=== PATIENT | male | born 1985 | race Two or more races ===

== ENCOUNTER 2017-06-22 07:26 | Day surgery (SDC) | payer MEDICARE, OTHER ==
[~2017-06-22] VITALS: Ht 172.7 cm; Wt 87.2 kg
[~2017-06-22 07:26] MED LIST: AUGMENTIN 875-1 EACH PO; NORCO 5-325 TA1 EACH PO
--- NOTE | 2017-06-22 11:25 | NUR ---
06/22/17 1125 Lorin Shi 1108 PT ARRIVED TO PACU NONAROUSABLE, MAINTIANING OWN AIRWAY AND RESP EVEN AND UNLABORED. 1113 O3 DECREASED TO 6L VIA MASK. O2 SAT 100%. 1116 PT SNORING. 1118 PT STRECHING IN BED AND OPENED HIS EYES. 1124 RN WRITE ON NOTE PAD TO COMMUNICATE WITH PT. PT DENIES NAUSEA AND PAIN. 1125 AT [facility].
[2017-06-22] MEDS ORDERED: NORCO 5-325 TA1 EACH PO (13:32)
== END 2017-06-22 13:40 | disposition home or self-care (01) ==
LOC: OPS 07:26 → DS 07:26 → OPS 09:00
PROVIDERS: Dentist
PROC: 0CRWXJ1 Replacement of Upper Tooth, Multiple, with Synthetic Substitute, External Approach (ICD-10-PCS; 2017-06-22)
PROC: 0CTX0Z1 Resection of Lower Tooth, Multiple, Open Approach (ICD-10-PCS; 2017-06-22)
PROC: 0CRXXJ0 Replacement of Lower Tooth, Single, with Synthetic Substitute, External Approach (ICD-10-PCS; principal; 2017-06-22 09:00)
DX: K02.9 Dental caries, unspecified (principal); H91.3 Deaf nonspeaking, not elsewhere classified; F84.5 Asperger's syndrome; L21.8 Other seborrheic dermatitis; Z98.890 Other specified postprocedural states
CPT/HCPCS: 00170; J0330; J2250; J2405; J2704; J2765; J3010; J7120

== ENCOUNTER 2019-08-15 17:00 | Emergency (ER) | payer MEDICARE, OTHER ==
[~2019-08-15] VITALS: Ht 172.7 cm; Wt 87.2 kg
== END 2019-08-15 17:58 | disposition home or self-care (01) ==
LOC: ED 17:00
DX: S86.911A Strain of unspecified muscle(s) and tendon(s) at lower leg level, right leg, initial encounter (principal); X58.XXXA Exposure to other specified factors, initial encounter
CPT/HCPCS: 99283

== ENCOUNTER 2019-10-17 19:34 | Emergency (ER) | payer MEDICARE, OTHER ==
[~2019-10-17] VITALS: Ht 172.7 cm; Wt 87.1 kg
[2019-10-17] MEDS ORDERED: NORCO 5-325 TA1 EACH PO (20:15)
[2019-10-17] MEDS ORDERED: AUGMENTIN 875-1 EACH PO (21:14)
== END 2019-10-17 21:32 | disposition home or self-care (01) ==
LOC: ED 19:34
DX: S41.151A Open bite of right upper arm, initial encounter (principal); W54.0XXA Bitten by dog, initial encounter; Z23 Encounter for immunization
CPT/HCPCS: 90471; 90715; 99283-25

== ENCOUNTER 2019-11-12 14:13 | Emergency (ER) | payer MEDICARE, OTHER ==
[~2019-11-12] VITALS: Ht 172.7 cm; Wt 87.1 kg
--- OUTSIDE RECORDS SUMMARY | 2019-11-12 14:18 | XMS ---
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 Marti has no Care Guidelines for this patient. Bill VIS[facility] (12 MO.) [facility] T[facility] NOTE: Visits indicate total known visits. ED/C VISIT TRACKING (12 MO.) [facility] COMPLAINT: - COUGH, RUNNY NOSE 10/17/2019 19:35 DAWNA [facility] TYPE: Emergency COMPLAINT: - ANIMAL BITE DIAGNOSES: - Open bite of right upper arm, initial encounter - Encounter for immunization - Bitten by dog, initial encounter 08/15/2019 17:00 DAWNA [place] TYPE: Emergency COMPLAINT: - LEG PAIN, INJ DIAGNOSES: - Exposure to other specified factors, initial encounter - Pain in right leg - Strain of unspecified muscle(s) and tendon(s) at lower leg le INPATIENT VISIT TRACKING (12 MO.) No inpatient visits to display in this time frame [id number]
--- NOTE | 2019-11-13 06:57 | PATH ---
[facility] [address] [place], [place] [address] Signed ORDERING PHYSICIAN: Emeterio Weiner MD PATIENT NAME: PAULINO SMITH GENDER: M : 1985 SPECIMEN(S): MOLECULAR PATHOLOGY RESULTS: SARS-CoV-2 DETECTED ADDITIONAL NOTES.: The Barton Fusion SARS-CoV-2 Assay is a multiplex real-time PCR (RT-PCR) in vitro diagnostic test intended for the qualitative detection of RNA from SARS-CoV-2 from individuals who meet COVID-19 clinical and/or epidemiological criteria. In general, SARS-CoV-2 RNA can be detected during the acute phase of infection. Positive results indicate the presence of SARS-CoV-2 RNA. Clinical correlation with patient history and other diagnostic information is necessary to determine patient infection status. Positive results do not rule out bacterial infection or co-infection with other viruses. Negative results do not preclude SARS-CoV-2 infection and should not be used as the sole basis for patient management decisions. Negative results must be combined with other clinical observations, patient history, and epidemiological information. The Barton Fusion SARS-CoV-2 Assay is not yet approved or cleared by the [place] FDA. When there are no FDA-approved or cleared tests available, and other criteria are met, FDA can make tests available under an emergency access mechanism called an Emergency Use Authorization (EUA). The EUA for this test is supported by the [place] of Health and Human Service's (HHS's) declaration that circumstances exist to justify the emergency use of in vitro diagnostics for the detection and/or diagnosis of the virus that causes COVID-19. This EUA will remain in effect for the duration of the COVID-19 declaration justifying emergency of IVDs, unless it is terminated or revoked by FDA, after which the test may no longer be used. The Barton Fusion SARS-CoV-2 Assay is for use only under EUA in US laboratories certified under the Clinical Laboratory Improvement Amendments of 1988 (CLIA) to perform high complexity tests. [facility] is certified under CLIA to perform high complexity PATIENT NAME: PAULINO SMITH [facility] DATE OF : [birth year] REPORT #: [id number] PHYSICIAN: HAYDER PATHOLOGY PCP: FELIPA SALGUERO REPORT IS CONFIDENTIAL AND NOT TO BE RELEASED WITHOUT AUTHORIZATION [facility] [address] [place] [id number] Signed clinical laboratory testing. PERFORMING LABORATORY.: Molecular testing was performed by [facility] [place] [address] (Integration Developer: Nicholas Yun D.O.; CLIA#: [id number]) Diagnostician: System Interface Pathologist Electronically Signed 11/13/2019 Copies: ~ PATIENT NAME: PAULINO SMITH [facility] DATE OF : [birth year] REPORT #: [id number] PHYSICIAN: HAYDER JENKINS PCP: FELIPA SALGUERO REPORT IS CONFIDENTIAL AND NOT TO BE RELEASED WITHOUT AUTHORIZATION
== END 2019-11-12 15:13 | disposition home or self-care (01) ==
LOC: ED 14:13
DX: U07.1 COVID-19 (principal); J06.9 Acute upper respiratory infection, unspecified
CPT/HCPCS: 99283; C9803

== ENCOUNTER 2020-02-08 19:25 | Emergency (ER) | payer MEDICARE, OTHER ==
[~2020-02-08] VITALS: Ht 172.7 cm; Wt 87.1 kg
--- OUTSIDE RECORDS SUMMARY | 2020-02-08 19:28 | XMS ---
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 Care History Medical/Surgical 11/13/2019 [facility] - Patient is currently established with [facility]. If patient is seen in the ED during business hours. Please contact CHWs at [facility]. Care Recommendation: If this patient has had 5 or more Emergency Department visits in the last 12 months.\T\nbsp; Patient will require education on the scope and purpose of the ED as an acute care provider not a Primary Care Provider and should not be utilized for chronic conditions.\T\nbsp; These are guidelines and the provider should exercise clinical judgment when providing care. 11/13/2019 [facility] This patient is deaf with Aspergers Syndrome.\T\nbsp; Guanaco, father, stated that they were informed pt is POSITIVE for COVID 19 and patient will not listen and isolate.\T\nbsp; Advised to contact Public Health.\T\nbsp; E.D. VISIT COUNT (12 MO.) 4 DAWNA Torres TOTAL 4 NOTE: Visits indicate total known visits. ED/UCC VISIT TRACKING (12 MO.) 02/08/2020 19:25 DAWNA [place] TYPE: Emergency COMPLAINT: - COUGH,NECK PAIN 11/12/2019 14:16 DAWNA [facility] TYPE: Emergency COMPLAINT: - COUGH, RUNNY NOSE DIAGNOSES: - Acute upper respiratory infection, unspecified - COVID-19 - Cough 10/17/2019 19:35 DAWNA [place] TYPE: Emergency [...] unspecified muscle(s) and tendon(s) at lower leg level, right leg, initial encounter INPATIENT VISIT TRACKING (12 MO.) No inpatient visits to display in this time frame [email or web address]
== END 2020-02-08 20:13 | disposition left against medical advice (07) ==
LOC: ED 19:25
DX: Z53.21 Procedure and treatment not carried out due to patient leaving prior to being seen by health care provider (principal)

== ENCOUNTER 2020-04-06 19:55 | Emergency (ER) | payer MEDICARE, OTHER ==
[~2020-04-06] VITALS: Ht 172.7 cm; Wt 87.1 kg
--- OUTSIDE RECORDS SUMMARY | 2020-04-06 19:58 | XMS ---
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 CRITERIA MET - [facility] - Has Care Guidelines CARE PROVIDERS FELIPA SALGUERO Nurse Practitioner: 11/13/2019-Current PHONE: [phone] Marti has no Care Guidelines for this patient. Care History Medical/Surgical 11/13/2019 [facility] - Patient is currently established with [facility]. If patient is seen in the ED during business hours. Please contact CHWs at [facility]. Care Recommendation: If this patient has had 5 or more Emergency Department visits in the last 12 months.\T\nbsp; Patient will require education on the scope and purpose of the ED as an acute care provider not a Primary Care Provider and should not be utilized for chronic conditions.\T\nbsp; These are guidelines and the provider should exercise clinical judgment when providing care. 11/13/2019 [facility] This patient is deaf with Aspergers Syndrome.\T\nbsp; Guanaco, father, stated that they were informed pt is POSITIVE for COVID 19 and patient will not listen and isolate.\T\nbsp; Advised to contact Public Health.\T\nbsp; E.D. VISIT COUNT (12 MO.) [address] [facility] TOTAL 5 NOTE: Visits indicate total known visits. ED/UCC VISIT TRACKING (12 MO.) 04/06/2020 19:[address] [facility] [place] TYPE: Emergency COMPLAINT: - LEG PAIN 02/08/2020 19:[address] [facility] [place] TYPE: Emergency COMPLAINT: - COUGH,NECK PAIN DIAGNOSES: - Cervicalgia - Procedure and treatment not carried out due to patient leaving prior to being seen by health care provider - Cough 11/12/2019 14:16 DAWNA Marino [place] TYPE: Emergency [...] visits to display in this time frame [id number]
== END 2020-04-06 21:40 | disposition home or self-care (01) ==
LOC: ED 19:55
DX: M79.662 Pain in left lower leg (principal)
CPT/HCPCS: 99283

== ENCOUNTER 2020-04-21 17:42 | Emergency (ER) | payer MEDICARE, OTHER ==
[~2020-04-21] VITALS: Ht 172.7 cm; Wt 87.1 kg
--- OUTSIDE RECORDS SUMMARY | 2020-04-21 17:46 | XMS ---
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 CRITERIA MET - [facility] - Has Care Guidelines - [facility] - 2 Visits in 30 Days CARE PROVIDERS FELIPA SALGUERO Nurse Practitioner: 11/13/2019-Current PHONE: [phone] Marti has no Care Guidelines for this patient. Care History Medical/Surgical 11/13/2019 [facility] - Patient is currently established with [facility]. If patient is seen in the ED during business hours. Please contact CHWs at [facility]. Care Recommendation: If this patient [...] exercise clinical judgment when providing care. 11/13/2019 [facility] This patient is deaf with Aspergers Syndrome.\T\nbsp; Guanaco, father, stated that they were informed pt is POSITIVE for COVID 19 and patient will not listen and isolate.\T\nbsp; Advised to contact Public Health.\T\nbsp; E.D. VISIT COUNT (12 MO.) 6 DAWNA Torres TOTAL 6 NOTE: Visits indicate total known visits. ED/UCC VISIT TRACKING (12 MO.) 04/21/2020 17:43 DAWNA [place]ino [place] TYPE: Emergency COMPLAINT: - FEET/LEGS PAIN 04/06/2020 19:56 DAWNA [place] TYPE: Emergency COMPLAINT: - LEG PAIN/ INJ DIAGNOSES: - Pain in left lower leg 02/08/2020 19:25 [facility] [place] [place] TYPE: Emergency COMPLAINT: - COUGH,NECK PAIN DIAGNOSES: - Cervicalgia - Procedure and treatment not carried out due to patient leaving prior to being seen by health care provider - Cough 11/12/2019 14:16 [facility] [place] [facility] [place] TYPE: Emergency COMPLAINT: - COUGH, RUNNY NOSE DIAGNOSES: - Acute upper respiratory infection, unspecified - COVID-19 - Cough 10/17/2019 19:35 [facility] [place] [facility] [place] TYPE: Emergency COMPLAINT: - ANIMAL BITE [...] visits to display in this time frame [id number]
== END 2020-04-21 18:45 | disposition home or self-care (01) ==
LOC: ED 17:42
DX: R23.8 Other skin changes (principal)
CPT/HCPCS: 99283; A9270

== ENCOUNTER 2020-05-07 07:34 | Emergency (ER) | payer MEDICARE, OTHER ==
[~2020-05-07] VITALS: Ht 172.7 cm; Wt 87.1 kg
--- OUTSIDE RECORDS SUMMARY | 2020-05-07 07:40 | XMS ---
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 CRITERIA MET - [facility] - Has Care Guidelines - [facility] - 2 Visits in 30 Days CARE PROVIDERS FELIPA SALGUERO Nurse Practitioner: 11/13/2019-Current PHONE: [phone] Marti has no Care Guidelines for this patient. Care History Medical/Surgical 11/13/2019 [facility] - Patient is currently established with [facility]. If patient is seen in the ED during business hours. Please contact CHWs at [facility]. Care Recommendation: If this patient has had 5 or more Emergency Department visits in the last 12 months.\T\nbsp; Patient will require education on the scope and purpose of the ED as an acute care provider not a Primary Care Provider and should not be utilized for chronic conditions.\T\nbsp; These are guidelines and the provider should exercise clinical judgment when providing care. 11/13/2019 [facility] This patient is deaf with Aspergers Syndrome.\T\nbsp; Guanaco, father, stated that they were informed pt is POSITIVE for COVID 19 and patient will not listen and isolate.\T\nbsp; Advised to contact Public Health.\T\nbsp; E.D. VISIT COUNT (12 MO.) [address] [facility] [address] [facility] TOTAL 7 NOTE: Visits indicate total known visits. ED/UCC VISIT TRACKING (12 MO.) 05/07/2020 07:38 DAWNA Marino [place] TYPE: Emergency COMPLAINT: - FOOT PAIN 04/21/2020 17:43 [place] [place] TYPE: Emergency COMPLAINT: - FEET/LEGS PAIN/ NON INJ DIAGNOSES: - Other skin changes - Blister (nonthermal), right foot, initial encounter - Pain in right knee - Exposure to other specified factors, initial encounter - Blister (nonthermal), left foot, initial encounter - Pain in right foot 04/06/2020 19:[address] [facility] [address] [facility] [place] TYPE: Emergency COMPLAINT: - LEG PAIN/ INJ DIAGNOSES: - Pain in left lower leg 02/08/2020 19:[address] [facility] [address] [facility] [place] TYPE: Emergency COMPLAINT: - COUGH,NECK PAIN DIAGNOSES: - Cervicalgia - Procedure and treatment not carried out due to patient leaving prior to being seen by health care provider - Cough 11/12/2019 14:[address] [facility] [address] [facility] [place] TYPE: Emergency COMPLAINT: - COUGH, [...] visits to display in this time frame [id number]
== END 2020-05-07 08:13 | disposition home or self-care (01) ==
LOC: ED 07:34
DX: T25.221A Burn of second degree of right foot, initial encounter (principal); X58.XXXA Exposure to other specified factors, initial encounter
CPT/HCPCS: 99283

== ENCOUNTER 2020-06-10 16:22 | Emergency (ER) | payer MEDICARE, OTHER ==
[~2020-06-10] VITALS: Ht 172.7 cm; Wt 87.1 kg
--- OUTSIDE RECORDS SUMMARY | 2020-06-10 16:24 | XMS ---
PreManage Notification: PAULINO SMITH Security Clinical Support Associate Events 1 event(s) in the past 18 months Most recent security events: Elopement at [facility] 02/08/2020 19:25 - Other Details: PATIENT LWBS. CRITERIA MET - [facility] - Has Care Guidelines CARE PROVIDERS FELIPA SALGUERO Nurse Practitioner: Family 11/13/2019-Current PHONE: [phone] Marti has no Care Guidelines for this patient. Care History Medical/Surgical 05/10/2020 [facility] - CHW HAS CALLED PATIENT MOM AND LEFT A VOICEMAIL- CHW HAS CONTACTED PATIENT FREEMANDAD IN THE PAST- PATIENT STEPDAD HAS STATED HE IS UNABLE TO HELP PATIENT DUE TO NOT WILLING TO ACCEPT HELP. PATIENT WALKS LONG DISTANCES TO [employer] [place] AND HAS A COUPLE LEGAL MATTERS TO ADDRESS BECAUSE OF IT. STEPDAD AND MOM BOTH HAVE CONCERNS FOR PATIENT AND WOULD LIKE TO HAVE HIM SET UP WITH A PCP TO SEE WHAT CAN BE DONE TO PROVIDE PATIENT WITH THE HELP/ CARE HE NEEDS. - CHW MADE A REFERRAL TO [facility] CONTACTED PATIENT MOM - AND IS CURRENTLY WORKING WITH MOM TO HELP PATIENT ESTABLISH CARE WITH A PCP IN THE AREA. - PATIENT STEPDAD AND MOM HAVE TRIED TO HAVE PATIENT STOP COMING TO THE ED DUE TO SHOE/FEET PAIN BUT HE DOES NOT CARE WHAT IS STATED HE WILL COME IF HE WANTS TO. 11/13/2019 [facility] This patient is deaf with Aspergers Syndrome.\T\nbsp; Guanaco, father, stated that they were informed pt is POSITIVE for COVID 19 and patient will not listen and isolate.\T\nbsp; Advised to contact Public Health.\T\nbsp; E.D. VISIT COUNT (12 MO.) 8 [facility] TOTAL 8 NOTE: Visits indicate total known visits. ED/UCC VISIT TRACKING (12 MO.) 06/10/2020 16:22 [facility] [place] TYPE: Emergency COMPLAINT: - LEG PAIN 05/07/2020 07:38 DAWNA [place] TYPE: Emergency COMPLAINT: - FOOT PAIN DIAGNOSES: - Exposure to other specified factors, initial encounter - Burn of second degree of right foot, initial encounter - Pain in right foot 04/21/2020 17:43 DAWNA [place] TYPE: Emergency COMPLAINT: - FEET/LEGS PAIN/ NON INJ DIAGNOSES: - Other skin changes - Blister (nonthermal), right foot, initial encounter - Pain in right knee - Exposure to other specified factors, initial encounter - Blister (nonthermal), left foot, initial encounter - Pain in right foot 04/06/2020 19:56 DAWNA [place] TYPE: Emergency COMPLAINT: - LEG PAIN/ INJ DIAGNOSES: - Pain in left lower leg 02/08/2020 19:[address] [facility] [address] [facility] [place] TYPE: Emergency COMPLAINT: - COUGH,NECK PAIN DIAGNOSES: - Cervicalgia - Procedure and treatment not carried out due to patient leaving prior to being seen by health care provider - Cough 11/12/2019 14:16 DAWNA [place]ino [place] TYPE: Emergency COMPLAINT: - COUGH, RUNNY NOSE DIAGNOSES: - Acute upper respiratory infection, unspecified - COVID-19 - Cough 10/17/2019 19:[address] [facility] [address] [facility] [place] TYPE: Emergency COMPLAINT: - ANIMAL BITE DIAGNOSES: - Open bite of right upper arm, initial encounter - Encounter for immunization - Bitten by dog, initial encounter 08/15/2019 17:[address] [facility] [address] [facility] [place] TYPE: Emergency COMPLAINT: - LEG PAIN, INJ DIAGNOSES: - Exposure to other specified factors, initial encounter - Pain in right leg - Strain of unspecified muscle(s) and tendon(s) at lower leg level, right leg, initial encounter INPATIENT VISIT TRACKING (12 MO.) No inpatient visits to display in this time frame [email or web address]
== END 2020-06-10 20:45 | disposition home or self-care (01) ==
LOC: ED 16:22
DX: S93.402A Sprain of unspecified ligament of left ankle, initial encounter (principal); X58.XXXA Exposure to other specified factors, initial encounter
CPT/HCPCS: 73610; 99283-25

== ENCOUNTER 2020-06-16 13:16 | Emergency (ER) | payer MEDICARE, OTHER ==
[~2020-06-16] VITALS: Ht 172.7 cm; Wt 87.1 kg
--- OUTSIDE RECORDS SUMMARY | 2020-06-16 13:20 | XMS ---
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 CRITERIA MET - 6 ED Visits in 6 Months - [facility] - Has Care Guidelines - [facility] - 2 Visits in 30 Days CARE PROVIDERS FELIPA SALGUERO Nurse Practitioner: 11/13/2019-Current PHONE: [phone] Marti has no Care Guidelines for this patient. Care History Medical/Surgical 05/10/2020 [facility] - CHW HAS CALLED PATIENT MOM AND LEFT A VOICEMAIL- CHW HAS CONTACTED PATIENT SKYLAR IN THE PAST- PATIENT STEPDAD HAS STATED HE IS UNABLE TO HELP PATIENT DUE TO NOT WILLING TO ACCEPT HELP. PATIENT WALKS LONG DISTANCES TO [employer] [place] AND HAS A COUPLE LEGAL MATTERS TO ADDRESS BECAUSE OF IT. STEPDAD AND MOM BOTH HAVE CONCERNS FOR PATIENT AND WOULD LIKE TO HAVE HIM SET UP WITH A PCP TO SEE WHAT CAN BE DONE TO PROVIDE PATIENT WITH THE HELP/ CARE HE NEEDS. - CHW MADE A REFERRAL TO [facility] CONTACTED PATIENT MOM - AND IS CURRENTLY WORKING WITH MOM TO HELP PATIENT ESTABLISH CARE WITH A PCP IN THE AREA. - PATIENT STEPDAD AND MOM HAVE TRIED TO HAVE PATIENT STOP COMING TO THE ED DUE TO SHOE/FEET PAIN BUT HE DOES NOT CARE WHAT IS STATED HE WILL COME IF HE WANTS TO. 11/13/2019 [facility] This patient is deaf with Aspergers Syndrome.\T\nbsp; Guanaco, father, stated that they were informed pt is POSITIVE for COVID 19 and patient will not listen and isolate.\T\nbsp; Advised to contact Public Health.\T\nbsp; [facility] NOTE: Visits indicate total known visits. ED/UCC VISIT TRACKING (12 MO.) [facility]2020 [facility] [place] [facility] COMPLAINT: - RT AND LT LEG PAIN 06/10/2020 16:22 DAWNA [facility] TYPE: Emergency COMPLAINT: - LEG PAIN/ NON INJ DIAGNOSES: - Sprain of unspecified ligament of left ankle, initial encounter - Pain in left ankle and joints of left foot - Exposure to other specified factors, initial encounter 05/07/2020 07:[address] [facility] [address] [facility] [place] TYPE: Emergency COMPLAINT: - FOOT PAIN DIAGNOSES: - Exposure to other specified factors, initial encounter - Burn of second degree of right foot, initial encounter - Pain in right foot 04/21/2020 17:[address] [facility] [address] [facility] [place] TYPE: Emergency COMPLAINT: - FEET/LEGS PAIN/ [...] Pain in left lower leg 02/08/2020 19:25 DAWNA [facility] TYPE: Emergency [...] visits to display in this time frame [id number]
== END 2020-06-16 15:29 | disposition home or self-care (01) ==
LOC: ED 13:16
DX: S93.402A Sprain of unspecified ligament of left ankle, initial encounter (principal); X58.XXXA Exposure to other specified factors, initial encounter
CPT/HCPCS: 73610; 99283-25

== ENCOUNTER 2021-12-29 17:17 | Emergency (ER) | payer MEDICARE, OTHER ==
[~2021-12-29] VITALS: Ht 172.7 cm; Wt 87.1 kg
== END 2021-12-29 20:18 | disposition home or self-care (01) ==
LOC: ED 17:17
DX: S90.822A Blister (nonthermal), left foot, initial encounter (principal); S90.821A Blister (nonthermal), right foot, initial encounter; X58.XXXA Exposure to other specified factors, initial encounter
CPT/HCPCS: 99283